=== PATIENT | female | born 1955 | race Caucasian/White ===

== ENCOUNTER 2025-02-03 18:04 | Emergency (ER) | payer OTHER ==
[~2025-02-03] VITALS: Ht 154.9 cm; Wt 82.6 kg
--- NOTE | 2025-02-03 20:20 | RADIOLOGY REPORT ---
EXAM: CT CT T L SPINE HISTORY: Fall with hx of Osteoarthritis R Thorasic pain COMPARISON: None TECHNIQUE: Noncontrast axial CT images of the lumbar spine were performed. Sagittal and coronal reformatted images were obtained. This CT exam was performed using one or more of the following dose reduction techniques: Automated exposure control, adjustment of the mA and/or kv according to patient size, or the use of iterative reconstruction techniques. Radiation Dose: CT Dose: CTDI volume is 23.4 mGy. Dose-length product is 1113.37 mGy*cm FINDINGS: Thoracic spine: 12 rib-bearing thoracic type vertebra. Diffuse demineralization. Normal alignment of the thoracic spine. Chronic appearing mild loss of vertebral body height of T8-T12. No evidence of acute traumatic fractures or spondylolisthesis. Multilevel ayxc-fq-fiowcqrh degenerative changes of the thoracic spine. Lumbar spine: 5 ybs-pfa-oqoaofp lumbar-type vertebrae. Normal alignment of the lumbar spine. Compression fracture of the superior endplate of of L4 with about 50% loss of central vertebral body height grade 1 retrolisthesis of L3 on L4 and grade 1 anterolisthesis of L4 on L5. Multilevel moderate to severe facet osteoarthritis. There is about 4 mm retropulsion of the superior vertebral body of L4 into the spinal canal. T12-L1: No significant spinal canal or neural foramina stenosis. L1-L2: No significant spinal canal stenosis. Uzzn-fs-screixiy bilateral neural foramina stenosis. L2-L3: No significant spinal canal stenosis. Bbgr-hl-sehsyvpe bilateral neural foramina stenosis. L3-L4: Mild spinal canal stenosis with lket-od-vblvomyz bilateral neural foramina stenosis. L4-L5: No significant spinal canal stenosis. Mild bilateral neural foramina stenosis. L5-S1: No significant spinal canal or neural foramina stenosis. Deformity of S1-S2 which may be from prior injury. Sclerotic focus of the right pelvic bone which represent a small bone island. The paraspinal muscles unremarkable. Lower back Subcutaneous fat edema.. Ingested material within the mildly distended esophagus. Aspiration precautions is recommended. Bilateral dependent atelectasis. IMPRESSION: Compression fracture of L4 with about 50% loss of central vertebral body height of unknown chronicity. MRI would be helpful to determine chronicity. Multilevel mild chronic appearing loss of vertebral body height of the thoracic spine
[2025-02-03] MEDS ORDERED: LIDO-52 TD (21:04)
[2025-02-03] MEDS ORDERED: TRAM50TA2 PO (21:04)
[2025-02-03] MEDS ORDERED: IBUP-1984 PO (21:04)
--- NOTE | 2025-02-03 21:06 | Physician Documentation ---
History of Present Illness ~ Chief Complaint: Back Pain Stated Complaint: FALL Time Seen by MD: 18:27 HPI 69-year-old female with known history of osteoporosis, compression fracture, and several autoimmune disorders presents to the emergency department because she had a mechanical fall two days ago and she landed on a metal water bottle on her right lateral ribcage. She denies shortness of breath, fever or productive sputum. She does however states that the pain is reproducible with deep breath and turning of her thoracic cavity. No prior history of the same. Medication Reconciliation Allergies: Coded Allergies: Sulfa (Sulfonamide Antibiotics) (Verified Allergy, Unknown, 02/03/25) Scheduled Ibuprofen* (Motrin*), 1 TAB PO Q8H Lidocaine (Lidoderm), 1 PATCH TD DAILY Scheduled PRN Tramadol HCl (Tramadol HCl), 1 TAB PO Q6H PRN PRN for pain Review of Systems All Other Systems at this time: Reviewed and Negative Constitutional: Reports: see HPI Musculoskeletal: Reports: see HPI Physical Exam Physical Exam Vital Signs: RN Vital Signs have been reviewed: Yes, Temperature: 97.0, Source: Temporal, Heart Rate: 80, Respiratory Rate: 18, BP: 138/83, Pulse Oximetry: 95, Weight: 82.600 Oxygen Flow Rate: 0 General Appearance: alert, WD/WN, mild distress EENT: PERRL/EOMI Neck: non-tender Respiratory: lungs clear, normal breath sounds Chest: no accessory muscle use Cardiovascular: normal peripheral pulses Gastrointestinal: non-tender BacK: no CVA tenderness Back Tenderness to the right lateral thoracic ribcage had T5 through T7 with early ecchymosis, no flail segments, no subcutaneous air, no paradoxical chest wall motion Extremities: no evidence of injury Sensory/Motor: sensation grossly intact Neurologic: oriented x4 Psychiatric: normal mood/affect Skin: normal color, warm/dry; No: rash, vesicles Progress Results/Orders Results/Orders Orders - MAYTE YU PAC Ct T&L Spine (02/03/25 19:40) Completed Orders - MAYTE YU PAC Lidocaine 5% Patch (Lidoderm 5% Patch) (02/04/25 08:00) Ct T&L Spine (02/03/25 19:40) Lidocaine 5% Patch (Lidoderm 5% Patch) (02/03/25 19:20) Oxycodone/Acetaminophen Tablet (Percocet (02/03/25 21:05) Ondansetron Disint. Tablet (Zofran Odt T (02/03/25 21:10) Vital Signs 02/03/25 02/03/25 18:09 21:19 Temp 97.0 98.6 Pulse 80 78 Resp 18 18 B/P (MAP) 138/83 130/80 Pulse Ox 95 99 O2 Flow Rate 0 Medical Decision Making Additional information obtaine: family Findings 69-year-old female who had a mechanical fall without precipitating factors landed on her right thoracic ribcage requiring evaluation due to her known history of osteoporosis in several autoimmune disorders. Her CT imaging is reassuring for no acute findings and she is well aware of the findings of her compression fracture and lumbar pathology. She received a Lidoderm patch and Percocet pain management in the emergency department safe for discharge. I will be providing her with tramadol, Lidoderm patches and low-dose ibuprofen. 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 Reports that her pain management in the past was well-controlled with methadone. Has been off pain management for several years but the acute injury is requiring some abortive therapy. There are no flail segments noted, no subcutaneous air or paradoxical chest wall motion yet there is mild ecc hymosis around rib five through seven. Otherwise reassuring exam,, discussed findings with family and patient and discharge plan. Differential Dx:Considerations: Fracture, Musculoskeletal pain, Strain Departure Disposition: HOME / SELF CARE / HOMELESS Impression: Primary Impression: Back problem Additional Impressions: Back contusion Qualified Codes: S20.221A - Contusion of right back wall of thorax, initial encounter Chronic compression fracture Condition: Improved Additional Instructions: Please begin pain medicine as directed and follow up with the primary care physician for re-evaluation. Please return to the emergency department [facility] as needed. Referrals: NO PRIMARY CARE PROVIDER (PCP) Prescriptions Lidocaine (Lidoderm) 5 % Adh..patch 1 PATCH TD DAILY, #30 PATCH Apply 1 patch daily for 12 hours then off for 12 hours May sub 15 grams 4 pct lidocaine cream if patches are cost peohibitive Prov: MAYTE YU PAC 02/03/25 Ibuprofen* (Motrin*) 400 Mg Tablet 1 TAB PO Q8H for pain or fever for 10 Days, #30 TAB Prov: MAYTE YU PAC 02/03/25 Tramadol HCl (Tramadol HCl) 50 Mg Tablet 1 TAB PO Q6H PRN PRN for pain for 7 Days, #28 TAB Prov: MAYTE YU 02/03/25 Education Educated: Patient, Family Educated regarding: diagnosis, treatment, prognosis, need for follow up Signature Scribe Signature: . Attestation: . MAYTE YU Feb 03, 2025 21:06
[2025-02-03] MEDS: ondansetron 4mg rapidly disintigrating tab PO ONE (21:13)
[2025-02-03] MEDS: oxyCODONE/APAP 5-325mg tablet PO ONE (21:13)
[2025-02-03 21:19] VITALS: BP 130/80; PULSE 78; RESP 18; TEMP 98.6; O2SAT 99
== END 2025-02-03 21:20 | disposition home or self-care (01) ==
LOC: ER 18:05
DX: S20.221A Contusion of right back wall of thorax, initial encounter (principal); M48.56XA Collapsed vertebra, not elsewhere classified, lumbar region, initial encounter for fracture; Z88.2 Allergy status to sulfonamides; Z79.899 Other long term (current) drug therapy; W18.39XA Other fall on same level, initial encounter; Y93.89 Activity, other specified; Y92.89 Other specified places as the place of occurrence of the external cause; Y99.8 Other external cause status
CPT/HCPCS: 72128; 72131; 99284